=== PATIENT | female | born 1950 ===

== ENCOUNTER → 2018-08-23 | Outpatient (CLI) | payer MEDICARE, BC ==
[~2018-08-23] MED LIST: CETI5 PO; Cleocin HCl300 MG PO; PSEUDOEPHEDRINE30 MG PO; Percocet 5-3251 EACH PO; Prednisone20 MG PO; ZOLP5 PO
[2018-08-24 15:07] LABS: HPV 16 Negative (Negative); HPV 18 Negative (Negative); HPV OTHER HR TYPES Negative (Negative)
== END | disposition home or self-care (01) ==
LOC: LAB 12:13 → LAB SHORT 12:13
PROVIDERS: Nurse Practitioner Women's Health
DX: Z12.72 Encounter for screening for malignant neoplasm of vagina (principal); Z91.89 Other specified personal risk factors, not elsewhere classified
CPT/HCPCS: 87624; G0123

== ENCOUNTER 2024-07-18 08:34 | Day surgery (SDC) | payer MEDICARE, OTHER ==
[~2024-07-18] VITALS: Ht 162.6 cm; Wt 60.5 kg
[~2024-07-18 08:34] MED LIST changes: +Lactated Ringer's 1,000 ML IV ONE; +propofoL 50 ML IV ONE
[2024-07-18] MEDS ORDERED: NAPR220 (09:24)
[2024-07-18] MEDS ORDERED: COVARYX H.S. T1 EACH TOP ×2 (09:24)
[2024-07-18] MEDS ORDERED: Lactated Ringer's 1,000 ML IV ONE ×2 (10:19→11:27)
--- NOTE | 2024-07-18 11:46 | NUR ---
07/18/24 [email or web address] Tegan Lee NOTED PVCS ON 3 LEAD EKG DURING PROCEDURE, SEE MD EMILY AWARE. OTHERWISE PT SINUS RHYTHM. INJECTED 5ML TOTAL FOR POLYPECTOMIES.
[2024-07-18] MEDS ORDERED: propofoL 50 ML IV ONE (11:56)
[2024-07-18 12:05] VITALS: BP 132/70
== END 2024-07-18 12:16 | disposition home or self-care (01) ==
LOC: ORSCSDS 08:34
PROVIDERS: Internal Medicine Gastroenterology
PROC: 0DBL8ZX Excision of Transverse Colon, Via Natural or Artificial Opening Endoscopic, Diagnostic (ICD-10-PCS; principal; 2024-07-18 10:15)
PROC: 0DBH8ZX Excision of Cecum, Via Natural or Artificial Opening Endoscopic, Diagnostic (ICD-10-PCS; principal; 2024-07-18 10:15)
PROC: 0DBK8ZX Excision of Ascending Colon, Via Natural or Artificial Opening Endoscopic, Diagnostic (ICD-10-PCS; principal; 2024-07-18 10:15)
PROC: 0DBM8ZX Excision of Descending Colon, Via Natural or Artificial Opening Endoscopic, Diagnostic (ICD-10-PCS; principal; 2024-07-18 10:15)
DX: Z12.11 Encounter for screening for malignant neoplasm of colon (principal); Z86.0101 Personal history of adenomatous and serrated colon polyps; D12.0 Benign neoplasm of cecum; D12.2 Benign neoplasm of ascending colon; D12.3 Benign neoplasm of transverse colon; D12.4 Benign neoplasm of descending colon; K57.30 Diverticulosis of large intestine without perforation or abscess without bleeding; K64.4 Residual hemorrhoidal skin tags; Z79.899 Other long term (current) drug therapy
CPT/HCPCS: 36415; 74177; 80048; 80053; 85014; 85018; 85025; 85027; 85610; 85730; 86850; 86900; 86901; 88305; 99285-25; A9270; G0378; J2704; J7120; Q9967

== ENCOUNTER 2024-07-18 16:14 | Observation (INO) | payer MEDICARE, OTHER ==
[~2024-07-18] VITALS: Ht 162.6 cm; Wt 61.3 kg
[~2024-07-18 16:14] MED LIST changes: +COVARYX H.S. T1 EACH TOP; -Lactated Ringer's 1,000 ML IV ONE; +NAPR220; -propofoL 50 ML IV ONE
[2024-07-18 17:12] LABS: BASOPHILS ABSOLUTE AUTO 0.04 K/mm3 (0.00-0.23); BASOPHILS PERCENT AUTO 0 % (0-2); EOSINOPHILS ABSOLUTE AUTO 0.06 K/mm3 (0.00-0.68); EOSINOPHILS PERCENT AUTO 0 % (0-6); Hematocrit 35.5 % (33.0-51.0); Hemoglobin 12.4 g/dL (11.5-16.0); IMMATURE GRAN ABSOLUTE AUTO 0.06 K/mm3 (0.00-0.10); IMMATURE GRAN PERCENT AUTO 0 % (0-1); LYMPHOCYTES ABSOLUTE AUTO 1.29 K/mm3 (0.84-5.20); LYMPHOCYTES PERCENT AUTO 9 % (21-46); MONOCYTES ABSOLUTE AUTO 1.12 K/mm3 (0.16-1.47); MONOCYTES PERCENT AUTO 8 % (4-13); Mean Corpuscular HGB 31.7 pg (26.0-34.0); Mean Corpuscular HGB Conc 34.9 g/dL (31.5-36.5); Mean Corpuscular Volume 91 fL (80-100); Mean Platelet Volume 9.1 fL (9.1-12.4); NEUTROPHILS ABSOLUTE AUTO 11.12 K/mm3 (1.96-9.15); NEUTROPHILS PERCENT AUTO 81 % (41-73); Platelet Count 270 K/mm3 (150-400); RDW Coefficient Variation 12.3 % (11.7-14.2); Red Blood Cell Count 3.91 M/mm3 (3.80-5.20); White Blood Cell Count 13.69 K/mm3 (4.00-11.30)
[2024-07-18 17:30] LABS: Albumin, Blood 3.3 g/dL (3.4-5.0); Albumin/Globulin Ratio 1.3 (0.8-1.8); Bilirubin, Total 0.6 mg/dL (0.1-1.0); Bun/Creatinine Ratio 15.9 (12.0-20.0); Calcium, Blood 8.5 mg/dL (8.5-10.1); Creatinine, Blood 0.63 mg/dL (0.40-1.00); Globulin, Blood 2.5 g/dL (2.2-4.0); Potassium, Blood 3.4 mmol/L (3.5-5.5); Total Protein, Blood 5.8 g/dL (6.4-8.2)
[2024-07-18] MEDS ORDERED: FLU VACC TS2024-25(6MOS UP)/PF 45 MCG/0.5 ML SYRINGE IM ONE (23:00)
[2024-07-18] MEDS ORDERED: Ondansetron HCl 2 MG / ML 2ML Vial IV PRN (23:00)
[2024-07-18] MEDS ORDERED: Potassium Chloride 20 MEQ TabCR PO ONE (23:05)
[2024-07-18 23:11] LABS: Hematocrit 31.8 % (33.0-51.0); Hemoglobin 11.3 g/dL (11.5-16.0)
[2024-07-19 00:03] LABS: International Normalized Ratio 0.96; Prothrombin Time Results 10.3 Sec (9.7-11.5)
[2024-07-19 04:31] VITALS: BP 139/71
[2024-07-19] MEDS ORDERED: Acetaminophen 325 MG TABLET PO PRN (05:00)
[2024-07-19 05:56] LABS: BASOPHILS ABSOLUTE AUTO 0.02 K/mm3 (0.00-0.23); BASOPHILS PERCENT AUTO 0 % (0-2); EOSINOPHILS ABSOLUTE AUTO 0.05 K/mm3 (0.00-0.68); EOSINOPHILS PERCENT AUTO 1 % (0-6); Hematocrit 32.5 % (33.0-51.0); Hemoglobin 11.2 g/dL (11.5-16.0); IMMATURE GRAN ABSOLUTE AUTO 0.02 K/mm3 (0.00-0.10); IMMATURE GRAN PERCENT AUTO 0 % (0-1); LYMPHOCYTES ABSOLUTE AUTO 2.11 K/mm3 (0.84-5.20); LYMPHOCYTES PERCENT AUTO 27 % (21-46); MONOCYTES ABSOLUTE AUTO 0.56 K/mm3 (0.16-1.47); MONOCYTES PERCENT AUTO 7 % (4-13); Mean Corpuscular HGB 31.8 pg (26.0-34.0); Mean Corpuscular HGB Conc 34.5 g/dL (31.5-36.5); Mean Corpuscular Volume 92 fL (80-100); Mean Platelet Volume 9.3 fL (9.1-12.4); NEUTROPHILS ABSOLUTE AUTO 4.94 K/mm3 (1.96-9.15); NEUTROPHILS PERCENT AUTO 64 % (41-73); Platelet Count 248 K/mm3 (150-400); RDW Coefficient Variation 12.6 % (11.7-14.2); RDW Standard Deviation 42.4 fL (35.1-46.3); Red Blood Cell Count 3.52 M/mm3 (3.80-5.20)
[2024-07-19 06:26] LABS: Bun/Creatinine Ratio 11.2 (12.0-20.0); Calcium, Blood 8.3 mg/dL (8.5-10.1); Creatinine, Blood 0.81 mg/dL (0.40-1.00); Potassium, Blood 3.8 mmol/L (3.5-5.5)
--- NOTE | 2024-07-19 07:29 | NUR ---
ASSUMED CARE OF PATIENT. AWAKE DURING SHIFT-CHANGE REPORT. NO ACUTE NEEDS. BED IN LOWEST POSITION. CALL LIGHT WITHIN REACH.
[2024-07-19 07:57] VITALS: BP 134/67
[2024-07-19 15:29] LABS: Hematocrit 31.5 % (33.0-51.0); Hemoglobin 10.8 g/dL (11.5-16.0); Mean Corpuscular HGB 31.7 pg (26.0-34.0); Mean Corpuscular HGB Conc 34.3 g/dL (31.5-36.5); Mean Corpuscular Volume 92 fL (80-100); Mean Platelet Volume 9.5 fL (9.1-12.4); Platelet Count 238 K/mm3 (150-400); RDW Coefficient Variation 12.6 % (11.7-14.2); RDW Standard Deviation 42.1 fL (35.1-46.3); Red Blood Cell Count 3.41 M/mm3 (3.80-5.20); White Blood Cell Count 7.12 K/mm3 (4.00-11.30)
[2024-07-19 15:56] VITALS: BP 139/76
--- NOTE | 2024-07-19 17:13 | NUR ---
END OF SHIFT SUMMARY: A&Ox4. PLEASANT AND COOPERATIVE WITH CARE. CALLS APPROPRIATELY AND IS ABLE TO ADVOCATE NEEDS EFFECTIVELY. CONTINENT OF BOWEL AND BLADDER. AMBULATES INDEPENDENTLY. SOME SELF-REPORT OF CLOTS IN DARK BROWN STOOL. NO MEDS ADMINISTERED THIS SHIFT. NO C / O PAIN. NO TELE. ROOM AIR. [employer] DISCUSSED LIVING SITUATION c WHO HAS DEMENTIA. PROVIDED c COMMUNITY RESOURCES. NO NEW MEDICATIONS. H&H RECHECK WNL. INSTRUCTED TO F/U c PCP AND DR. LUA WITHIN ONE WEEK. IV REMOVED BY THIS RN. DAUGHTER PROVIDING TRANSPORTATION. LEFT FLOOR c ALL BELONGINGS AND DISCHARGE PACKET.
[2024-07-19] MEDS ORDERED: Zolpidem Tartrate 5 MG Tab PO SCH (21:00)
== END 2024-07-19 17:35 | disposition home or self-care (01) ==
LOC: ER 16:14 → MEDS 16:15 → ERHOLD 16:15 → MEDS 07-19 04:25
PROVIDERS: Emergency Medicine; Family Medicine; Internal Medicine; ADMIT Student in an Organized Health Care Education/Training Program
DX: K91.840 Postprocedural hemorrhage of a digestive system organ or structure following a digestive system procedure (principal); E87.6 Hypokalemia; D64.9 Anemia, unspecified; Z88.2 Allergy status to sulfonamides; Z88.8 Allergy status to other drugs, medicaments and biological substances; Y83.8 Other surgical procedures as the cause of abnormal reaction of the patient, or of later complication, without mention of misadventure at the time of the procedure; Z12.11 Encounter for screening for malignant neoplasm of colon; Z86.0101 Personal history of adenomatous and serrated colon polyps; D12.0 Benign neoplasm of cecum; D12.2 Benign neoplasm of ascending colon; D12.3 Benign neoplasm of transverse colon; D12.4 Benign neoplasm of descending colon; K57.30 Diverticulosis of large intestine without perforation or abscess without bleeding; K64.4 Residual hemorrhoidal skin tags; Z79.899 Other long term (current) drug therapy
CPT/HCPCS: 36415; 74177; 80048; 80053; 85014; 85018; 85025; 85027; 85610; 85730; 86850; 86900; 86901; 88305; 93005; 93010; 96365; 99285-25; A9270; G0378; J2704; J7120; Q9967